=== PATIENT | male | born 1955 | race Caucasian/White ===

== ENCOUNTER → 2020-02-12 | Outpatient (CLI) | payer OTHER ==
[~2020-02-12] MED LIST: ALBU90OI61 INH; CALCA500CH PO; CITA20 PO; CLON1 PO; CRUTCH4 USE; CYCL10 PO; FLUSAL1005 IH; HYDACE5325 PO; HYDHCL25 PO; IBUP600 PO; NAPR375 PO; PRAZ5 PO; PRED20 PO; PRODEXEL PO; RANI150 PO; RXHYDACE PO; TRAM50 PO; [UNRECOGNIZED DRUG - REMARK]
== END | disposition home or self-care (01) ==
LOC: LAB SHORT 09:30 → LAB 09:30
DX: R19.7 Diarrhea, unspecified (principal)
CPT/HCPCS: 87493